=== PATIENT | female | born 1955 | race Two or more races ===

== ENCOUNTER 2020-07-10 09:00 | Outpatient (AMBR) | payer MEDICARE, MEDICAID, SELFPAY ==
--- NOTE | 2020-07-10 09:12 | PT.OIERPT ---
PT OP Initial Eval Patient Information Pediatric or Adult Patient: Adult PT >13 Visit Reasons: post op left knee Medical Diagnosis: L TKA Treatment Dx #1: Muscle weakness Treatment Dx #2: pain on the L knee Start of Care: 07/10/20 Date of Onset: 06/19/2020 Initial Assessment Subjective 65 y/o female who is S/P L TKA last 06/19/2020. Patient as of this time has difficulty lifting her LLE to do sit <-> supine. Patient states the leg feels 'heavy' still . She has 3steps to go inside her house. Patient has difficulty with ascending and descending steps. Her goal is to be able to do gardening again in her yard. Objective L knee AROM /PROM Flexion 105 // 115 extension L quads 2+/5 L hamstrings 3+/5 L knee circumference Anterior 38cm 2 inferior = 35cm 2 superior = 41cm Pain at worst = 6/10 during ambulation Pain at best = 0/10 at rest. Assessment Patient will need physical therapy for improving knee ROM towards flexion and extension through manual therapy in order for her to manage the stairs. Strengthening ex on LLE. modalities and kinesiotaping to help manage the pain and edema. Patient were advised to apply ice at home due to presence of edema on L knee. Short Term and Line Construction Superintendent Goals 1. To decrease pain during ambulation to 0/10 x 8 weeks 2. To increase ROM on L knee flexion to 125-135deg x 8 weeks to be able to help manage the stairs 3. To increase muscle strength to 5/5 x 8 weeks to facilitate bed mobility and transfers 4. I with HEP Treatment Plan Thera ex manual tx Modalities Kinesiotaping Frequency and Duration 2x/wk x 8 weeks. Certification Dates: 07/10/20 to 10/10/19
--- NOTE | 2020-07-14 10:55 | PTNOTE_ITS ---
PT Outpatient Daily Note Date of Service: 07/14/2020 OP Daily Note Visit Reasons: post op left knee Outpatient Physical Therapy Treatment Date: 07/14/20 Subjective: pt came in having pain and swelling of the knee. Objective: see flow sheet. Assessment: pt ambulated with SPC. observed her knee very swollen causing antalg ic gait pattern. pt lacks knee extension. she is not able lift her LLE without assistance. pt needs the strap during heel slides to assist with knee flexion. pt is very pleasant throughout treatment. educated pt about her procedure as she had a lot of questions and about therapy in regards to exercises. Plan: continue POC per PT. Length of Time (minutes) of Treatment: 30 Minutes Office Procedures PT Procedures PT Date of Service: 07/14/20 Therapeutic Exercise 30 minutes: Yes PT Procedures PT Date of Service: 07/10/20 OP PT Eval Mod Complex 30 minutes: Yes
== END 2020-07-15 23:59 | disposition home or self-care (01) ==
PROVIDERS: PCP Physician Assistant; Referring Provider Physician Assistant; Visit Provider Orthopaedic Surgery
DX: Z47.1 Aftercare following joint replacement surgery (principal); Z96.652 Presence of left artificial knee joint; M62.81 Muscle weakness (generalized); M25.562 Pain in left knee; R26.2 Difficulty in walking, not elsewhere classified
CPT/HCPCS: 97110; 97162

== ENCOUNTER 2020-08-14 10:52 | Outpatient (AMBR) | payer MEDICARE, MEDICAID, SELFPAY ==
--- NOTE | 2020-07-17 14:17 | PT.ODAYNRPT ---
PT Outpatient Daily Note Date of Service: 07/17/2020 OP Daily Note Visit Reasons: post op left knee Outpatient Physical Therapy Treatment Date: 07/17/20 Subjective: pt came in with eager for PT. Objective: see flow sheet. Assessment: progressed her exercises by addiing new ones and using thera band. she did well on the bike but did feel a bit more fatigue afterwards. pt tolerated the RTB for her exercises as it was not that resisted. pt needs more strengthening. she ambulates with AD but can walk short distances but is unsteady. Plan: continue POC per PT. Length of Time (minutes) of Treatment: 30 Minutes COMMUNICATION STUDIES PROFESSOR Service Modifier Method I: Divide the number of min of care provided by the COMMUNICATION STUDIES PROFESSOR/BRANDT by the total min of care provided then multiply by 100. If greater than 11 percent modifier is required. Method II: Divide the total time of care provided to patient by 10 (round to the nearest whole number) and add 1 min. to set the minimum time requirement. If treatment total was 60 min., then 10% of 6 min Did COMMUNICATION STUDIES PROFESSOR provide more than 10% of the care?: Yes PT CQ modifier applied: CQ Modifier applied Office Procedures PT Procedures PT Date of Service: 07/17/20 Therapeutic Exercise 30 minutes: Yes
--- NOTE | 2020-07-21 11:24 | PTNOTE_ITS ---
PT Outpatient Daily Note Date of Service: 07/21/2020 OP Daily Note Visit Reasons: post op left knee Outpatient Physical Therapy Treatment Date: 07/21/20 Subjective: pt came in and stated her knee still limits her mobility and does have pain. pt wants to go to [place] but is contemplating, advised her to let us know. Objective: see flow sheet. Assessment: attempted stair at 6 step but it was a bit to high and difficult for her. switched back to the 4 step and it was better but still weak. pt had difficulty remembering the monster walk exercise and needed max cuing to correct. after a few attempts she was able to get better but still needs practice. the resistance did not bother her it was getting the momentum. Plan: continue POC per PT. Length of Time (minutes) of Treatment: 30 Minutes Office Procedures PT Procedures PT Date of Service: 07/21/20 Therapeutic Exercise 30 minutes: Yes PT Procedures PT Date of Service: 07/17/20 Therapeutic Exercise 30 minutes: Yes
--- NOTE | 2020-08-14 12:16 | PT.ODAYNRPT ---
PT Outpatient Daily Note Date of Service: 08/14/2020 OP Daily Note Visit Reasons: post op left knee Outpatient Physical Therapy Treatment Date: 08/14/20 Subjective: pt states she walked from home using her 4WW to PT. pt came in a bit tired. Objective: see flow sheet. Assessment: attempted to go up the higher step 6 but pt was not able to do it correctly. she compensates due to fear of her knee popping out of place. she did try once but she compensated with her RLE. changed step heights to lower one and she was able to complete those. added supine exercises in which she needed more encouraging to increase her knee flexion. Plan: continue POC per PT. Length of Time (minutes) of Treatment: 30 Minutes CHAIN SALES REPRESENTATIVE Service Modifier Method I: Divide the number of min of care provided by the CHAIN SALES REPRESENTATIVE/BRANDT by the total min of care provided then multiply by 100. If greater than 11 percent modifier is required. Method II: Divide the total time of care provided to patient by 10 (round to the nearest whole number) and add 1 min. to set the minimum time requirement. If treatment total was 60 min., then 10% of 6 min Did CHAIN SALES REPRESENTATIVE provide more than 10% of the care?: Yes PT CQ modifier applied: CQ Modifier applied Office Procedures PT Procedures PT Date of Service: 07/21/20 Therapeutic Exercise 30 minutes: Yes PT Procedures PT Date of Service: 07/17/20 Therapeutic Exercise 30 minutes: Yes PT Procedures PT Date of Service: 08/14/20 Therapeutic Exercise 30 minutes: Yes
== END 2020-08-14 23:59 | disposition home or self-care (01) ==
PROVIDERS: PCP Physician Assistant; Referring Provider Physician Assistant; Visit Provider Orthopaedic Surgery
DX: Z47.1 Aftercare following joint replacement surgery (principal); Z96.652 Presence of left artificial knee joint; M62.81 Muscle weakness (generalized); M25.562 Pain in left knee; R26.2 Difficulty in walking, not elsewhere classified
CPT/HCPCS: 97110

== ENCOUNTER 2020-10-13 11:17 | Outpatient (AMBR) | payer MEDICARE, MEDICAID, SELFPAY ==
--- NOTE | 2020-09-18 11:48 | PT.ODAYNRPT ---
PT Outpatient Daily Note Date of Service: 09/18/20 OP Daily Note Visit Reasons: post op left knee Outpatient Physical Therapy Treatment Date: 09/18/20 Subjective: pt states her LLE has been hurting more often so she aced wrap her knee. she continues to walk from home to PT clinic. Objective: see flow sheet. Assessment: pt ambulates with antalgic gait pattern due to the LLE. in order for pt to SLR she has to use the strap. she is still not able to lift her LLE without assistance due to pain and weakness. added balance exercise with foam pads as she is to squat with no hands on the bar. pt did well but does weight shift to the RLE as compensation for her LLE pain. Plan: continue POC per PT. Length of Time (minutes) of Treatment: 30 Minutes Office Procedures PT Procedures PT Date of Service: 09/18/20 Therapeutic Exercise 30 minutes: Yes
--- NOTE | 2020-10-02 12:59 | PT.ODS1RPT ---
PT OP Progress/Discharge Note Date of Service: 10/02/20 Progress Note/DC Note Progress Note/Discharge Note: Progress Note Patient Information Visit Reasons: post op left knee Medical Diagnosis: Z47.1; Z96.652 Treatment Dx #1: Left Knee Mobility Deficits Treatment Dx #2: Left Knee Weakness Service Continue Service or Discharge: Continue Service Certification Date Certification Dates: 10/02/20 to 12/31/20 Status Subjective: Pt mention that her knee feels the same. Pt still has pain (6/10) in the knee and hip. Pt has limitation with prolonged walking, standing, chores, cooking, cleaning, and performing stairs. Pt notice that getting in/out of the car or light ADLs around the house is getting easier. Pt recently saw surgeon and he recommends a knee JUANCARLOS in 3 months if she's no better. Objective: Left Knee AROM: -12 deg to 115 deg Left Knee PROM: -8 deg to 118 deg Left Knee MMTs Quads: 3+/5 Hs: 3+/5 Left Hip MMTs Glute Med: 3/5 Glute Max: 3/5 SLS: 3 sec use of BUE unable without hand support Assessment: Pt exhibit improvement with knee ROM, however, continues to have knee weakness and difficulty weightbearing correctly leading to difficulty with ambulation, chores, and recreational activities. Pt has an antalgic with cane due to pain in the knee and hip. Pt comes into therapy sessions inconsistently which relate to her slow progress with overall function. Pt has not met set goals yet and will continue to benefit from physical therapy, thank you for your referrals. Plan: Continue with PT/POC and add 12 sessions (2 x wk for 6 wks) Office Procedures PT Procedures PT Date of Service: 09/18/20 Therapeutic Exercise 30 minutes: Yes PT Procedures PT Date of Service: 10/02/20 Therapeutic Exercise 30 minutes: Yes
--- NOTE | 2020-10-05 11:58 | PT.ODAYNRPT ---
PT Outpatient Daily Note Date of Service: 10/05/20 OP Daily Note Visit Reasons: post op left knee Outpatient Physical Therapy Treatment Date: 10/05/20 Subjective: Pt mention that her knee is the same. Pt continues to have knee pain and difficulty bending Objective: Please see flow chart for list of ther ex performed Assessment: tolerate exercises with minimal pain Plan: Continue with PT Length of Time (minutes) of Treatment: 30 Minutes Office Procedures PT Procedures PT Date of Service: 10/05/20 Therapeutic Exercise 30 minutes: Yes PT Procedures PT Date of Service: 09/18/20 Therapeutic Exercise 30 minutes: Yes PT Procedures PT Date of Service: 10/02/20 Therapeutic Exercise 30 minutes: Yes
--- NOTE | 2020-10-10 14:10 | PT.ODAYNRPT ---
PT Outpatient Daily Note Date of Service: 10/10/20 OP Daily Note Visit Reasons: post op left knee Outpatient Physical Therapy Treatment Date: 10/10/20 Subjective: Pt mention that her knee is the same. Pt blames her right limb for limping. Pt still notice the side pain of her knee to the hip. Objective: (+) laurent's on L LE Assessment: Pt demonstrate IT band tigthness leading to lateral side pain on the left LE; decrease pain after STM. Pt educated that it's crucial to exercise adn stretch the knee to prevent a knee manipulation due to scar tissue. Plan: Continue with PT Length of Time (minutes) of Treatment: 30 Minutes Office Procedures PT Procedures PT Date of Service: 10/05/20 Therapeutic Exercise 30 minutes: Yes PT Procedures PT Date of Service: 09/18/20 Therapeutic Exercise 30 minutes: Yes PT Procedures PT Date of Service: 10/02/20 Therapeutic Exercise 30 minutes: Yes PT Procedures PT Date of Service: 10/10/20 Therapeutic Exercise 15 minutes: Yes Manual System Support Developer 15 minutes: Yes
--- NOTE | 2020-10-13 13:07 | PTNOTE_ITS ---
PT Outpatient Daily Note Date of Service: 10/13/20 OP Daily Note Visit Reasons: post op left knee Outpatient Physical Therapy Treatment Date: 10/13/20 Subjective: Pt's knee is the same. Pt continues to have right foot pain and knee that's why it is slow progress on her left knee. Objective: Please see flow chart for list of ther ex performed Assessment: educate patient on the procedure and process of her knee implant and to why she continues to have knee pain especially with standing. Pt frequently need cues to perform exercises on her left side with all exercises. Noted improved IT band flexibility after today's session Plan: Continue with PT Length of Time (minutes) of Treatment: 45 Minutes Office Procedures PT Procedures PT Date of Service: 10/05/20 Therapeutic Exercise 30 minutes: Yes PT Procedures PT Date of Service: 10/13/20 Therapeutic Activity 15 minutes: Yes Therapeutic Exercise 15 minutes: Yes Manual Jewellery Designer 15 minutes: Yes PT Procedures PT Date of Service: 09/18/20 Therapeutic Exercise 30 minutes: Yes PT Procedures PT Date of Service: 10/02/20 Therapeutic Exercise 30 minutes: Yes PT Procedures PT Date of Service: 10/10/20 Therapeutic Exercise 15 minutes: Yes Manual Jewellery Designer 15 minutes: Yes
== END 2020-10-15 23:59 | disposition home or self-care (01) ==
PROVIDERS: PCP Physician Assistant; Referring Provider Physician Assistant; Visit Provider Orthopaedic Surgery
DX: Z47.1 Aftercare following joint replacement surgery (principal); Z96.652 Presence of left artificial knee joint; M25.562 Pain in left knee; M62.81 Muscle weakness (generalized)
CPT/HCPCS: 97110; 97140; 97530

== ENCOUNTER 2020-11-06 11:07 | Outpatient (AMBR) | payer MEDICARE, MEDICAID, SELFPAY ==
--- NOTE | 2020-10-20 12:52 | PT.ODAYNRPT ---
PT Outpatient Daily Note Date of Service: 10/20/20 OP Daily Note Visit Reasons: post op left knee Outpatient Physical Therapy Treatment Date: 10/20/20 Subjective: Pt's stated that there's good and bad days for her knee. Pt feels the IT band STM is helping some and will like to continue Objective: Left Victor Manuel AROM: -10 deg to 120 deg Assessment: Pt's knee flexion AROM has improved and now able to put more weight through the left knee with step up; advance her today to 6 inch step. cues to relax with knee flexion passive stretching Plan: Continue with PT Length of Time (minutes) of Treatment: 30 Minutes Office Procedures PT Procedures PT Date of Service: 10/20/20 Therapeutic Exercise 15 minutes: Yes Manual Requirements Analyst 15 minutes: Yes
--- NOTE | 2020-10-24 11:06 | PTNOTE_ITS ---
PT Outpatient Daily Note Date of Service: 10/24/20 OP Daily Note Visit Reasons: post op left knee Outpatient Physical Therapy Treatment Date: 10/24/20 Subjective: Pt's left knee better. Pt feels that the manual therapy is really helping her pain. Pt notice she's able to walk longer without the left knee hurting as much Objective: Please see flow chart for list of ther ex performed Assessment: tolerate exercises with minimal pain; continues to improve with knee flexion ROM after stretching. Pt also demonstrate ability to put more weight on the left knee leading to decrease antalgic gait Plan: Continue with PT Length of Time (minutes) of Treatment: 30 Minutes Office Procedures PT Procedures PT Date of Service: 10/20/20 Therapeutic Exercise 15 minutes: Yes Manual Photogrammetric Compilation Specialist 15 minutes: Yes PT Procedures PT Date of Service: 10/24/20 Therapeutic Exercise 15 minutes: Yes Manual Photogrammetric Compilation Specialist 15 minutes: Yes
--- NOTE | 2020-11-02 13:21 | PTNOTE_ITS ---
PT Outpatient Daily Note Date of Service: 11/02/20 OP Daily Note Visit Reasons: post op left knee Outpatient Physical Therapy Treatment Date: 11/02/20 Subjective: pt stated her knee still bothers her not as bad as it did at first. pt also c/o R knee bothering her now due to compensations of the LLE. Objective: see flow sheet. Assessment: pt came in with SPC instead of the 4WW. she can ambulate without the SPC but does have antalgic gait. pt has difficulty ascending the step due to pain and weakness. demonstrated the correct motion and she attempted it well. advised her to continue with correct form. during PROM she has fair knee flexion ROM with observation but her fear of her knee popping out of place per her com plaint limits her mobility. Plan: continue POC per PT. Length of Time (minutes) of Treatment: 30 Minutes PERSONAL SHOPPER Service Modifier Method I: Divide the number of min of care provided by the PERSONAL SHOPPER/FIELD SUPPORT REPRESENTATIVE by the total min of care provided then multiply by 100. If greater than 11 percent modifier is required. Method II: Divide the total time of care provided to patient by 10 (round to the nearest whole number) and add 1 min. to set the minimum time requirement. If treatment total was 60 min., then 10% of 6 min Did PERSONAL SHOPPER provide more than 10% of the care?: Yes PT CQ modifier applied: CQ Modifier applied Office Procedures PT Procedures PT Date of Service: 10/20/20 Therapeutic Exercise 15 minutes: Yes Manual Retail Sales Associate Bilingual 15 minutes: Yes PT Procedures PT Date of Service: 10/24/20 Therapeutic Exercise 15 minutes: Yes Manual Retail Sales Associate Bilingual 15 minutes: Yes PT Procedures PT Date of Service: 11/02/20 Therapeutic Exercise 30 minutes: Yes
--- NOTE | 2020-11-06 15:42 | PT.ODS1RPT ---
PT OP Progress/Discharge Note Date of Service: 11/06/20 Progress Note/DC Note Progress Note/Discharge Note: DC Note Patient Information Visit Reasons: post op left knee Medical Diagnosis: Z47.1; Z96.652 Treatment Dx #1: Left Knee Mobility Deficits Treatment Dx #2: Left Knee Weakness Service Continue Service or Discharge: Discharge Discharge Date: 11/06/20 Status Subjective: Pt mention that her left knee is much better. Pt has been able to drive, cook, clean, walk, and perform chores with less limitation. Pt stated that one of her biggest limitation with performing ADLs is the right knee pain. At this time Pt feels comfortable being release from physical therapy with exercises to continue at home. Objective: Left Knee AROM: -8 deg to 120 deg Left Knee MMTs Quads: 4/5 Hs: 4/5 Left Hip MMTs Glute Med: 3+/5 Glute Max: 3+/5 SLS: 10 sec Assessment: Pt demonstrate functional knee ROM and strength allowing her to resume ADLs, chores, drive, and ambulate with minimal limitation. Pt will no longer benefit from physical therapy due to meeting all set goals in therapy. Pt was instructed on HEP last session and educated to continue exercises to maintain overall mobility. Pt performed all exercises safely, thank you for your referrals. Plan: D/C home with HEP and follow up with MD BARCENAS Office Procedures PT Procedures PT Date of Service: 10/20/20 Therapeutic Exercise 15 minutes: Yes Manual Community Liaison 15 minutes: Yes PT Procedures PT Date of Service: 10/24/20 Therapeutic Exercise 15 minutes: Yes Manual Community Liaison 15 minutes: Yes PT Procedures PT Date of Service: 11/02/20 Therapeutic Exercise 30 minutes: Yes PT Procedures PT Date of Service: 11/06/20 Therapeutic Exercise 30 minutes: Yes
== END 2020-11-12 23:59 | disposition home or self-care (01) ==
PROVIDERS: PCP Physician Assistant; Referring Provider Physician Assistant; Visit Provider Orthopaedic Surgery
DX: Z47.1 Aftercare following joint replacement surgery (principal); Z96.652 Presence of left artificial knee joint; M62.81 Muscle weakness (generalized); M25.562 Pain in left knee; R60.0 Localized edema
CPT/HCPCS: 97110; 97140